=== PATIENT | male | born 1955 | race Caucasian/White ===

== ENCOUNTER → 2016-10-03 | Day surgery (SDC) | payer BC ==
[2016-09-12 13:59] VITALS: Ht 185.4 cm; Wt 122.7 kg
[~2016-10-03] VITALS: Ht 185.4 cm; Wt 122.7 kg
[~2016-10-03] MED LIST: ACCL20 PO; ALBU1AER9 INH; AMLO-110 PO; ASCA500 PO; FERR1TAB61 PO; FLVHFA110 INH; GARL400T5 PO; LANS30CA12 PO; LIDOCAINE HCL 1% MPF 5 ML VIAL ONE; MOME50SP5; MULT-506 PO; NAPR1TAB9 PO; SODIUM CHLORIDE 0.9% INJ 10 ML VIAL ONE
--- NOTE | 2016-10-03 14:30 | History & Physical Bridge - [place] ---
H&P Re-Evaluation Bridge Note: I have examined the patient, reviewed the History & Physical and in the interval since the performance of the History & Physical I have noted the following changes of clinical significance: No changes noted
--- NOTE | 2016-10-03 15:02 | Discharge Instructions ---
Discharge Instructions Date of Service Oct 03, 2016. Visit Reason for Visit: Post Laminectomy Syndrome Discharge Discharge Diagnosis / Problem: leg pain Discharge Goals Goal(s): Decrease discomfort, Improve function Activity Recommendations Activity Limitations: resume your previous activity Anesthesia . Post Anesthesia Instructions: If you have had General Anesthesia or IV Sedation: * Do not drive today. * Resume driving when surgeon permits. * Do not make important decisions or sign legal documents today. * Call surgeon for: 1. Temperature elevations greater than 101 degrees F. 2. Uncontrollable pain. 3. Excessive bleeding. 4. Persistent nausea and vomiting. 5. Medication intolerance (nausea, vomiting or rash). * For nausea and vomiting use only clear liquids such as: tea, soda, bouillon until nausea subsides, then gradually increase diet as tolerated. * If you have any concerns or questions, call your surgeon's office. If physician is unavailable and it is an emergency, call 911 or go to the nearest emergency room. . Diet Recommendations Recommended Home Diet: resume previous diet Procedures Procedures Performed: caudal epidural steroid injection Pending Studies Studies pending at discharge: no Medical Emergencies . Who to Call and When: Medical Emergencies: If at any time you feel your situation is an emergency, please call 911 immediately. . Non-Emergent Contact Non-Emergency issues call your: Specialist . . "Provider Documentation" section prepared by Jakub Patel.
[2016-10-03 15:05] VITALS: TEMP 36.3
[2016-10-03 15:09] VITALS: BP 151/83; PULSE 60; O2SAT 96
--- NOTE | 2016-10-03 15:25 | OPERATIVE REPORT ---
DATE OF OPERATION: 10/03/2016 PREOPERATIVE DIAGNOSIS: History of a lumbar fusion with persistent stenosis and radiculopathy. POSTOPERATIVE DIAGNOSIS: Same. PROCEDURE: Caudal epidural steroid injection under fluoroscopic guidance. SURGEON: Dr. Jakub Patel. INDICATIONS: The patient is a 60-year-old white male who has received epidurals via a caudal approach in the past and has done very well with them. He most recently had one in September and most recently the pain relief has been wearing off with increasing pain. He presents today for caudal epidural injection to provide him with relief of radicular pain. PHYSICAL EXAMINATION: Pleasant male seated comfortably. He has a well-healed lumbar incision. He has no focal weakness and no sensory deficits. Negative seated straight leg raises. CONSENT: Verbal and written consent was obtained from the patient. Risks and benefits were reviewed. Risks include but are not limited to abscess and allergic reaction. The patient wishes to proceed. PROCEDURE: The patient was taken back to the special procedures room of the [facility] where he was maintained in a prone position. Backside was cleansed with Betadine x3 and a dry sterile dressing was applied. Fluoroscope was used to identify the sacral hiatus and the overlying skin was anesthetized with 5 mL of lidocaine 1% with a 25 gauge 1.5-inch needle. A 22 gauge 5 inch needle was then directed under lateral fluoroscopic guidance into the canal. It was advanced 2 inches into the canal. He then underwent injection after negative aspiration of 40 mg of Depo-Medrol and 5 mL of preservative free sodium chloride. Injection was well tolerated. DISPOSITION: 1. The patient is taken out into the discharge recovery area where he will be discharged home once discharge criteria have been met. 2. Follow up in the [facility] office in 2-4 weeks. I attest to the content of the Intraoperative Record and any orders documented therein. Any exceptio ns are noted below.
== END | disposition home or self-care (01) ==
LOC: X.SURG 13:53
PROVIDERS: ATTEND Physical Medicine & Rehabilitation
DX: M96.1 Postlaminectomy syndrome, not elsewhere classified (principal); I10 Essential (primary) hypertension; J45.909 Unspecified asthma, uncomplicated; M19.90 Unspecified osteoarthritis, unspecified site; Z90.49 Acquired absence of other specified parts of digestive tract; Z98.1 Arthrodesis status

== ENCOUNTER → 2016-12-26 | Outpatient (CLI) | payer BC ==
[~2016-12-26] MED LIST changes: +GADAVIST IV PRN; -LIDOCAINE HCL 1% MPF 5 ML VIAL ONE; -SODIUM CHLORIDE 0.9% INJ 10 ML VIAL ONE
--- NOTE | 2016-12-26 18:12 | DIAGNOSTIC IMAGING REPORT ---
LUMBAR SPINE MRI WITH AND WITHOUT CONTRAST HISTORY: Low back pain. LUMBAR SPINAL STENOSIS TECHNIQUE: Multiplanar multisequence MRI of the lumbar spine was performed both before and after the intravenous administration of contrast. COMPARISON: Lumbar spine MRI 02/09/2015. FINDINGS: For the purpose of the report the L5-S1 disc space will be located on axial image 23 of 25. Prior L4-L5 posterior decompression and fusion with pedicle screws and rods. Alignment remains intact. There is mild disc space narrowing at L1-L2 and L3-L4. Moderate disc space narrowing at L2-L3. This is slightly progressed. There are few scattered hemangiomas within the T12 and L2 vertebral bodies. The contrast terminates at the L1 level. There is mild tortuosity and clumping of the cauda equina. This favors a mild arachnoiditis. This is new from the prior study. Visualized paraspinal soft tissues are unremarkable. L1-L2: Small broad-based posterior disc bulge without significant central canal or neural foraminal narrowing. L2-L3: Small broad-based posterior disc bulge with mild facet hypertrophy resulting in mild central canal which has slightly progressed and mild bilateral neural foraminal narrowing. There is a small left foraminal disc osteophyte complex which appears to abut the exiting left L2 nerve root. This remains unchanged. L3-L4: Broad-based posterior disc bulge with facet hypertrophy resulting in moderate central canal and moderate to severe bilateral neural foraminal narrowing. This has slightly progressed. L4-L5: No central canal narrowing due to the posterior decompression. Moderate right and mild left neural foraminal narrowing, unchanged. L5-S1: No significant central canal or neural foraminal narrowing. IMPRESSION: 1. Status post L4-L5 posterior decompression and fusion. No evidence for recurrent disc herniation. 2. Multilevel lumbar spondylosis as described above which has slightly progressed. This is most pronounced at the L3-L4 level. 3. Progressive clumping and tortuosity of the cauda equina suggestive of a mild arachnoiditis. Electronically signed by: Jamal Tapia M.D. 12/26/2016 6:11 PM Dictated Date/Time: 12/26/2016 6:01 PM
== END | disposition home or self-care (01) ==
LOC: C.MRI 16:29
PROVIDERS: ATTEND Physical Medicine & Rehabilitation
DX: M96.1 Postlaminectomy syndrome, not elsewhere classified (principal); M48.06 Spinal stenosis, lumbar region; Z98.1 Arthrodesis status; M47.816 Spondylosis without myelopathy or radiculopathy, lumbar region

== ENCOUNTER → 2017-04-05 | Outpatient (CLI) | payer BC ==
[~2017-04-05] MED LIST changes: -GADAVIST IV PRN
--- NOTE | 2017-04-05 14:00 | DIAGNOSTIC IMAGING REPORT ---
STANDING LUMBAR SPINE RADIOGRAPHS CLINICAL HISTORY: Lumbar spinal stenosis. COMPARISON: Lumbar spine MRI December 26, 2016. FINDINGS: There are postsurgical findings consistent with an L4-L5 discectomy with interbody spacer placement. There is a posterior decompression with bilateral pedicle screws at the L4 and L5 levels with interconnecting rods. There is lucency surrounding the bilateral L4 pedicle screws with possible lucency surrounding the left L5 pedicle screw. The hardware is intact. No acute fracture is identified. There is slight retrolisthesis of L2 on L3. There is moderate multilevel disc space narrowing, osteophytosis and facet arthrosis, most pronounced at the L2-L3 and L3-L4 levels. IMPRESSION: 1. Status post L4-L5 discectomy and bilateral pedicle screw fusion. Hardware intact. Lucency surrounding the bilateral L4 pedicle screws and possible lucency surrounding the left L5 pedicle screw which raises the possibility of loosening. 2. No acute lumbar spine fracture. 3. Moderate multilevel disc space narrowing, osteophytosis and facet arthrosis of the lumbar spine. Electronically signed by: Tal Jimenez M.D. 04/05/2017 1:59 PM Dictated Date/Time: 04/05/2017 1:56 PM
== END | disposition home or self-care (01) ==
LOC: C.RDSM 12:25
PROVIDERS: ATTEND Orthopaedic Surgery
DX: M48.061 Spinal stenosis, lumbar region without neurogenic claudication (principal)

== ENCOUNTER → 2017-09-06 | Outpatient (CLI) | payer BC, OTHER ==
--- NOTE | 2017-09-06 11:28 | DIAGNOSTIC IMAGING REPORT ---
LUMBAR SPINE 2 VIEWS HISTORY: S/P LAMINECTOMY COMPARISON: Lumbar spine 04/05/2017. FINDINGS: There is no fracture. Cholecystectomy. Minimal levoscoliosis of the lumbar spine, unchanged. The L5 pedicle screws have been removed. There is now posterior decompression and fusion at L3-L4 with pedicle screws and rods. The hardware appears intact. There is a disc spacer at L4-L5, unchanged. Stable grade I anterolisthesis of L4 and L5. Moderate to severe disc space narrowing at L2-L3 with endplate osteophytes which has slightly progressed. IMPRESSION: 1. No fractures within the lumbar spine. 2. Interval posterior decompression and fusion at L3-L4. The hardware appears intact. 3. Slight progression of the degenerative disc disease at L2-L3. Electronically signed by: Jamal Tapia M.D. 09/06/2017 11:27 AM Dictated Date/Time: 09/06/2017 11:24 AM
== END | disposition home or self-care (01) ==
LOC: C.RDSM 10:55
PROVIDERS: ATTEND Orthopaedic Surgery
DX: Z98.890 Other specified postprocedural states (principal); Z98.1 Arthrodesis status